=== PATIENT | female | born 1945 | race Caucasian/White ===

== ENCOUNTER 2016-04-25 10:13 | Emergency (ER) | payer MEDICARE, OTHER ==
[2016-04-25 10:32] VITALS: BP 161/89
[2016-04-25] MEDS ORDERED: methylPREDNISolone Sodium Succinate 125 MG/2 ML SDV IVPUSH ONE (11:10)
[2016-04-25] MEDS ORDERED: Sodium Chloride 0.9% 10 ML Syringe FLUSH PRN (11:10)
[2016-04-25] MEDS ORDERED: Albuterol 0.083% 2.5 MG/3 ML Neb Soln NEB ONE (11:11)
--- NOTE | 2016-04-25 11:13 | EDM.PDOC ---
ED HISTORY OF PRESENT ILLNESS - General Chief Complaint: Respiratory Problem Stated Complaint: ASTHMA Time Seen by Provider: 04/25/16 11:12 Source: Reports: Patient, Family History Limitations: Reports: No limitations - History of Present Illness INITIAL COMMENTS - FREE TEXT/NARRATIVE: pt radford been very sob and wheezy. Her chest does feel heavy. She has been coughing for about 1 week. Timing/Duration: Reports: Day(s):, Getting worse Location, General: Reports: chest Associated Symptoms: Reports: cough, shortness of breath - Related Data Allergies/ADRs: Allergies Allergy/AdvReac Type Severity Reaction Status Date / Time codeine AdvReac Nausea Verified 04/25/16 10:46 Home Meds: Home Meds Albuterol [Ventolin HFA] 2 puff IN ASDIRECTED PRN 04/25/16 [History] Aspirin 81 mg PO DAILY 04/25/16 [History] Calcium Carb/Vit D3/Minerals [Cvs Calcium Chewables Plus Tab] 1 tab PO BID 04/25 [History] Celecoxib [CeleBREX] 200 mg PO BID 04/25/16 [History] Fluticasone/Salmeterol [Advair 250-50 Diskus] 1 puff INH Q12H 04/25/16 [History] Hydrochlorothiazide 25 mg PO ASDIRECTED 04/25/16 [History] Irbesartan [Avapro] 150 mg PO DAILY 04/25/16 [History] Metoprolol Tartrate 50 mg PO DAILY 04/25/16 [History] Multivitamin [Multi-Vitamin Daily] 1 tab PO DAILY 04/25/16 [History] Omeprazole 40 mg PO BID 04/25/16 [History] amLODIPine [Norvasc] 5 mg PO DAILY 04/25/16 [History] Past Medical History HEENT History: Reports: Cataract Respiratory History: Reports: Asthma, Sleep apnea, Other (see below) Other Respiratory History: pumonary embolism x 3 [employer] History: Reports: Musculoskeletal History: Reports: Arthritis, Back pain, chronic - Past Surgical History GI Surgical History: Reports: Cholecystectomy Female Surgical History: Reports: Hysterectomy Other Female Surgeries/Procedures: bladder tuck Social & Family History - Tobacco Use Smoking Status *Q: Never Smoker - Caffeine Use Caffeine Use: Reports: Coffee, Soda - Alcohol Use Days Per Week of Alcohol Use: 7 Number of Drinks Per Day: 3 Total Drinks Per Week: 21 - Recreational Drug Use Recreational Drug Use: No Drug Use in Last 12 Months: No ED ROS GENERAL - Review of Systems Review Of Systems: See Below Constitutional: Reports: no symptoms HEENT: Reports: No symptoms Respiratory: Reports: Shortness of Breath Cardiovascular: Reports: No symptoms Endocrine: Reports: no symptoms GI/Abdominal: Reports: No symptoms : Reports: no symptoms Musculoskeletal: Reports: no symptoms Skin: Reports: no symptoms, change in color ED EXAM, GENERAL - Physical Exam Exam: See Below Free Text/Narrative:: pt arrived with marked wheezing She has been quite sob for the past 2 days/ Exam Limited By: Respiratory distress General Appearance: alert, anxious, mild distress Ears: normal TMs Nose: normal inspection Throat/Mouth: Normal inspection Head: atraumatic Neck: normal inspection Respiratory/Chest: decreased breath sounds, rhonchi, wheezing Cardiovascular: regular rate, rhythm GI/Abdominal: soft, non tender Rectal (Female) Exam: Deferred Back Exam: normal inspection Extremities: normal inspection Neurological: alert, oriented, normal cognition Psychiatric: normal affect Course - Vital Signs Last Recorded V/S: Last Vital Signs Temp 37.0 C 04/25/16 10:36 Pulse 102 H 04/25/16 10:36 Resp 20 04/25/16 10:36 BP 161/89 H 04/25/16 10:36 Pulse Ox 93 L 04/25/16 10:36 - Orders/Labs/Meds Orders: Active Orders 24 hr Category Date Time Status EKG Documentation Completion [RC] ASDIRECTED Care 04/25/16 11:02 Active RT Aerosol Therapy [RC] ASDIRECTED Care 04/25/16 11:11 Active RT Aerosol Therapy [RC] ASDIRECTED Care 04/25/16 13:11 Ordered Sodium Chloride 0.9% [Saline Flush] Med 04/25/16 11:10 Active 10 ml FLUSH ASDIRECTED PRN Saline Lock Insert [OM.PC] Routine Oth 04/25/16 11:10 Ordered EKG 12 Lead [EK] Routine Ther 04/25/16 11:02 Ordered Medication Orders Sodium Chloride (Saline Flush) 10 ml FLUSH ASDIRECTED PRN PRN Reason: Keep Vein Open Last Admin: 04/25/16 11:43 Dose: 10 ml Labs: Laboratory Tests 04/25/16 04/25/16 04/25/16 Range/Units 11:05 11:05 11:05 WBC 10.9 (4.5-11.0) K/uL RBC 4.42 (3.30-5.50) M/uL Hgb 14.2 (12.0-15.0) g/dL Hct 40.4 (36.0-48.0) % MCV 91 (80-98) fL MCH 32 H (27-31) pg MCHC 35 (32-36) % Plt Count 261 (150-400) K/uL Neut % (Auto) 65 (36-66) % Lymph % (Auto) 18 L (24-44) % [place] % (Auto) 15 H (2-6) % Eos % (Auto) 1 L (2-4) % Baso % (Auto) 1 (0-1) % Sodium 135 L (140-148) mmol/L Potassium 4.1 (3.6-5.2) mmol/L Chloride 96 L (100-108) mmol/L Carbon Dioxide 29 (21-32) mmol/L Anion Gap 14.1 H (5.0-14.0) mmol/L BUN 15 (7-18) mg/dL Creatinine 1.0 (0.6-1.0) mg/dL Est Cr Clr Drug Dosing 40.81 mL/min Estimated GFR (MDRD) 55 L (>60) Glucose 125 H (74-106) mg/dL Calcium 8.9 (8.5-10.1) mg/dL Total Bilirubin 0.6 (0.2-1.0) mg/dL AST 99 H (15-37) U/L ALT 71 (12-78) U/L Alkaline Phosphatase 110 (46-116) U/L Troponin I < 0.017 (0.000-0.056) ng/mL Total Protein 7.7 (6.4-8.2) g/dL Albumin 2.9 L (3.4-5.0) g/dL Globulin 4.8 H (2.3-3.5) g/dL Albumin/Globulin Ratio 0.6 L (1.2-2.2) Urine Color Urine Appearance Urine pH (4.5-8.0) Ur Specific [place] (1.008-1.030) Urine Protein (NEGATIVE) mg/dL Urine Glucose (UA) (NEGATIVE) mg/dL Urine Ketones (NEGATIVE) mg/dL Urine Occult Blood (NEGATIVE) Urine Nitrite (NEGATIVE) Urine Bilirubin (NEGATIVE) Urine Urobilinogen (NORMAL) mg/dL Ur Leukocyte Esterase (NEGATIVE) Urine RBC (0-5) Urine WBC (0-5) Ur Epithelial Cells Amorphous Sediment Urine Bacteria Urine Mucus 04/25/16 Range/Units 11:49 WBC (4.5-11.0) K/uL RBC (3.30-5.50) M/uL Hgb (12.0-15.0) g/dL Hct (36.0-48.0) % MCV (80-98) fL MCH (27-31) pg MCHC (32-36) % Plt Count (150-400) K/uL Neut % (Auto) (36-66) % Lymph % (Auto) (24-44) % [place] % (Auto) (2-6) % Eos % (Auto) (2-4) % Baso % (Auto) (0-1) % Sodium (140-148) mmol/L Potassium (3.6-5.2) mmol/L Chloride (100-108) mmol/L Carbon Dioxide (21-32) mmol/L Anion Gap (5.0-14.0) mmol/L BUN (7-18) mg/dL Creatinine (0.6-1.0) mg/dL Est Cr Clr Drug Dosing mL/min Estimated GFR (MDRD) (>60) Glucose (74-106) mg/dL Calcium (8.5-10.1) mg/dL Total Bilirubin (0.2-1.0) mg/dL AST (15-37) U/L ALT (12-78) U/L Alkaline Phosphatase (46-116) U/L Troponin I (0.000-0.056) ng/mL Total Protein (6.4-8.2) g/dL Albumin (3.4-5.0) g/dL Globulin (2.3-3.5) g/dL Albumin/Globulin Ratio (1.2-2.2) Urine Color Yellow Urine Appearance Clear Urine pH 5.0 (4.5-8.0) Ur Specific [place] 1.020 (1.008-1.030) Urine Protein Trace (NEGATIVE) mg/dL Urine Glucose (UA) Normal (NEGATIVE) mg/dL Urine Ketones Negative (NEGATIVE) mg/dL Urine Occult Blood Negative (NEGATIVE) Urine Nitrite Negative (NEGATIVE) Urine Bilirubin Small (NEGATIVE) Urine Urobilinogen 1 (NORMAL) mg/dL Ur Leukocyte Esterase Small (NEGATIVE) Urine RBC 0-5 (0-5) Urine WBC 0-5 (0-5) Ur Epithelial Cells Few Amorphous Sediment Rare Urine Bacteria Not seen Urine Mucus Few Meds: Medications Generic Name Dose Route Start Last Admin Trade Name Freq PRN Reason Stop Dose Admin Sodium Chloride 10 ml 04/25/16 11:10 04/25/16 11:43 Saline Flush FLUSH 10 ml ASDIRECTED PRN Administration Keep Vein Open Discontinued Medications Generic Name Dose Route Start Last Admin Trade Name Freq PRN Reason Stop Dose Admin Albuterol 2.5 mg 04/25/16 11:11 04/25/16 11:39 Proventil Neb Soln NEB 04/25/16 11:12 2.5 mg ONETIME ONE Administration Albuterol/Ipratropium 3 ml 04/25/16 13:11 04/25/16 13:17 Duoneb 3.0-0.5 Mg/3 Ml NEB 04/25/16 13:12 3 ml ONETIME ONE Administration Ceftriaxone Sodium 1 gm/ 50 mls @ 100 mls/hr 04/25/16 12:33 04/25/16 12:59 Sodium Chloride IV 04/25/16 13:02 100 mls/hr ONETIME ONE Administration Methylprednisolone Sodium Succinate 125 mg 04/25/16 11:10 04/25/16 11:40 Solu-Medrol IVPUSH 04/25/16 11:11 125 mg ONETIME ONE Administration - Re-Assessments/Exams Free Text/Narrative Re-Assessment/Exam: 04/25/16 14:20 pt arrived with sob and wheezing. Her chest xray did not reveal an infiltrate. wbc was not elevated. Departure - Departure Time of Disposition: 14:21 Disposition: Home, Self-Care 01 Condition: fair Clinical Impression: Bronchitis, Bronchospasm Forms: ED Department Discharge Care Plan Goals: push fluids, cool mist humidifier, duol nebs qid. augmentin 875 bid, prdisone 10mg as directed. for 5 days. follow up with regular Dr in 10 dys if not doing well. - My Orders Last 24 Hours: My Active Orders 04/25/16 11:02 EKG Documentation Completion [RC] ASDIRECTED EKG 12 Lead [EK] Routine 04/25/16 11:10 Sodium Chloride 0.9% [Saline Flush] 10 ml FLUSH ASDIRECTED PRN Saline Lock Insert [OM.PC] Routine 04/25/16 11:11 RT Aerosol Therapy [RC] ASDIRECTED 04/25/16 13:11 RT Aerosol Therapy [RC] ASDIRECTED - Assessment/Plan Last 24 Hours: My Active Orders 04/25/16 11:02 EKG Documentation Completion [RC] ASDIRECTED EKG 12 Lead [EK] Routine 04/25/16 11:10 Sodium Chloride 0.9% [Saline Flush] 10 ml FLUSH ASDIRECTED PRN Saline Lock Insert [OM.PC] Routine 04/25/16 11:11 RT Aerosol Therapy [RC] ASDIRECTED 04/25/16 13:11 RT Aerosol Therapy [RC] ASDIRECTED
--- NOTE | 2016-04-25 11:58 | CR ---
Chest 2V INDICATION: sob FINDINGS: Mild atelectasis or fibrosis in the right middle lobe or lingula on the lateral view. No f ocal consolidation. Chest otherwise negative.
[2016-04-25] MEDS ORDERED: cefTRIAXone 1 GM in Sodium Chloride 0.9% 50 ML IV ONE (12:33)
[2016-04-25] MEDS ORDERED: Albuterol/Ipratropium 3.0-0.5 MG/3 ML Neb Soln NEB ONE (13:11)
== END 2016-04-25 14:52 | disposition home or self-care (01) ==
LOC: JP.ED 10:13
DX: J40 Bronchitis, not specified as acute or chronic (principal); J98.01 Acute bronchospasm; J45.909 Unspecified asthma, uncomplicated; Z90.49 Acquired absence of other specified parts of digestive tract; Z90.710 Acquired absence of both cervix and uterus; Z98.890 Other specified postprocedural states; Z79.82 Long term (current) use of aspirin; Z79.899 Other long term (current) drug therapy; Z88.5 Allergy status to narcotic agent
CPT/HCPCS: 36415; 71020; 80053; 81001; 84484; 85025; 93005; 94640; 96365; 96375; 99285; J0696; J2930; J7050; J7620; 93010; 99284